=== PATIENT | female | born 1980 | race Caucasian/White ===

== ENCOUNTER 2025-06-13 10:47 | Day surgery (SDC) | payer BC, SELFPAY ==
[2025-06-13 11:19] VITALS: BP 117/74; PULSE 63; RESP 16; TEMP 36.7; O2SAT 100
[2025-06-13 11:21] VITALS: BMI 28.8
[2025-06-13 11:24] LABS: Ur HCG Qualitative* Negative (Negative)
[2025-06-13] MEDS: LACTATED RINGERS 1000 ML 1,000 ML 100 ML IV ×2 (11:30→14:40)
[2025-06-13] MEDS: SODIUM CHLORIDE 0.9 % (FLUSH) 10 ML SYRINGE IVF (11:30)
[2025-06-13] MEDS: BUPIVACAINE 0.25% 30 ML INJECTION (14:00)
--- NOTE | 2025-06-13 14:07 | P.ANES_ITS ---
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
--- NOTE | 2025-06-13 14:07 | W.ANESCHARGE ---
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
[2025-06-13 14:55] VITALS: BP 92/59; PULSE 69; RESP 16; TEMP 36.6; O2SAT 97
--- NOTE | 2025-06-13 14:55 | P.ANES_ITS ---
Anesthesia Charges Start Date/Time Anesthesia Start Date: 06/13/25 Anesthesia Start Time: 13:55 Stop Date/Time Anesthesia Stop Date: 06/13/25 Anesthesia Stop Time: 14:57 Coding CPT Codes CPT Codes: ANESTH LOWER LEG BONE SURG - 87793 ([id number]) P1 - NORMAL HEALTHY PATIENT, QX - CARPENTER PACKING JORDI W/ MED DIRECTION, QK - GEOTECHNICAL INTERN 2-4 CNCRNT ANES PROC
--- NOTE | 2025-06-13 14:55 | W.ANESCHARGE ---
Anesthesia Charges Start Date/Time Anesthesia Start Date: 06/13/25 Anesthesia Start Time: 13:55 Stop Date/Time Anesthesia Stop Date: 06/13/25 Anesthesia Stop Time: 14:57 Coding CPT Codes CPT Codes: ANESTH LOWER LEG BONE SURG - 06740 ([id number]) P1 - NORMAL HEALTHY PATIENT, QX - CHILD AND ADOLESCENT PSYCHIATRIST JORDI W/ MED DIRECTION, QK - PIANO REGULATOR 2-4 CNCRNT ANES PROC
[2025-06-13 15:00] VITALS: BP 97/61; PULSE 61; RESP 16; O2SAT 97
[2025-06-13 15:15] VITALS: BP 96/60; PULSE 67; RESP 16; O2SAT 97
[2025-06-13 15:30] VITALS: BP 104/77; PULSE 55; RESP 16; O2SAT 99
[2025-06-13] MEDS: OxyCODONE/APAP 5-325 TABLET PO (15:30)
[2025-06-13 15:45] VITALS: BP 104/54; PULSE 53; RESP 16; O2SAT 100
--- NOTE | 2025-06-13 16:08 | W.PM.PODPROC ---
Date of Procedure: 06/13/25 Surgeon: Baldo Welsh DPM Pre-op Diagnosis: 1. Hammertoe 4th digit right 2. Hammertoe 5th digit right Post-op Diagnosis: 1. Hammertoe 4th digit right 2. Hammertoe 5th digit right Type of Procedure: 1. Hammertoe correction 4th digit right 2. Hammertoe correction 5th digit right Indications: Patient having significant pain to the 4th 5th toes. She has elected to have surgical correction. I reviewed the procedure, recovery, expectation potential complications. These include but not limited to: Poor wound healing, infection, under correction, over correction, continued pain, potentially future surgery, flail toe, sausage toe, complex regional pain syndrome, deep venous thrombosis, pulmonary embolism possible . She understands risks written consent was obtained. Site marked. All questions answered. Procedure Description: Patient brought the operating room placed supine position on operating table that time IV sedation was initiated local anesthetic was injected into the right foot. 24 mL of 0.25% Marcaine plain used. SHe was then prepped and draped in sterile fashion. Standard time-out protocol followed. Linear incisions made over the 4th PIPJ is. The incision was carried down through skin subcutaneous tissues. Transverse incision was then made through the extensor tendon and joint capsule at the PIPJ. Medial and lateral collateral ligaments were released. Oscillating saw was used to resect the head of the proximal phalanx and base of the middle phalanx. Joint was irrigated normal sterile saline. A 0.045 smooth K-wire was inserted into the base of the middle phalanx driven out the tip of the toe. Fusion site was then held in appropriate alignment and the K-wire drilled retrogradely back into the proximal phalanx. Prominent bone laterally was resected with the oscillating saw. C-arm images confirmed excellent position. K-wire was bent cut and capped. Redundant tendon was excised and the extensor tendon repaired with 4-0 Vicryl. Skin was then repaired with 4-0 Prolene. Linear incisions made over the 5th PIPJ. The incision was carried down through skin subcutaneous tissues. Transverse incision was then made through the extensor tendon and joint capsule at the PIPJ. Medial and lateral collateral ligaments were released. Oscillating saw was used to resect the head of the proximal phalanx. Joint was irrigated normal sterile saline. Redundant tendon was excised and the extensor tendon repaired with 4-0 Vicryl. Skin was then repaired with 4-0 Prolene. Sterile dressing was then applied. Tourniquet was released and normal capillary fill time returned all digits. She was transferred from OR to PACU vital signs stable vascular status intact. She was discharged per Anesthesia. She was given both written and verbal postop instructions. She is weight-bearing as tolerated in a surgical shoe. She is given oxycodone for pain. Anesthesia: MAC and local Hemostasis: ankle Estimated blood loss (mL): 2 Provider Operated C-arm: The C-arm was operated by Baldo Welsh DPM for right hammertoe correction. Number of spot images taken was 8. Total fluoro time was 00.00.06. Implants: 0.045 smooth K-wire x1 Specimens: none sent Disposition: same day
--- NOTE | 2025-06-13 16:54 | SUR.PHASEII ---
pt tolerated yogurt and water. Pain medication given at 1530. Post op shoe applied to right foot. Ambulated with pt to car- family will take patient home.
== END 2025-06-13 16:10 | disposition home or self-care (01) ==
PROVIDERS: Anesthesiology; PCP Family Medicine; Visit Provider Podiatrist
PROC: (CPT 28285; principal; 2025-06-13 12:45)
DX: M20.41 Other hammer toe(s) (acquired), right foot (principal)
CPT/HCPCS: 28285 ×2; 01480; 73620; 76000; 81025; A9270; J0665; J0690; J1100; J2405; J2704; J3490; J7120